=== PATIENT | male | born 1970 | race Caucasian/White ===

== ENCOUNTER 2023-01-18 09:24 | Outpatient (REF) | payer BC, SELFPAY ==
[2023-01-18 11:31] LABS: Hematocrit 47.3 % (42.0-52.0); Hemoglobin 16.4 g/dl (14.0-18.0); Mean Corpuscular HGB Conc 34.7 g/dl (31.0-36.0); Mean Corpuscular Hemoglobin 32.3 pg (27.0-33.0); Mean Corpuscular Volume 93.1 fL (80.0-98.0); Mean Platelet Volume 10.3 fL (9.4-12.4); Platelet Count 248 X10*3/uL (160-400); Red Blood Count 5.08 X10*6/uL (4.60-5.80); Red Cell Distribution Width 12.1 % (11.0-16.0); White Blood Count 12.5 X10*3/uL (4.8-10.8)
[2023-01-18 11:49] LABS: Estimated Average Glucose 148 mg/dL; Hemoglobin A1c % 6.8 % (<6.0)
[2023-01-18 11:55] LABS: Alanine Aminotransferase 33 U/L (0-40); Albumin Level 4.1 g/dL (3.5-5.0); Alkaline Phosphatase 73 U/L (39-117); Anion Gap 12 (12-20); Aspartate Amino Transferase 23 U/L (5-37); Bilirubin Total 0.7 mg/dL (0.0-1.0); Blood Urea Nitrogen 11 mg/dL (9-16); Calcium 9.4 mg/dL (8.4-10.2); Carbon Dioxide 24 mmol/L (22-29); Chloride 107 mmol/L (96-108); Cholesterol 147 mg/dL (<200); Estimated Glomerular Filt Rate > 60; Glucose Fasting 144 mg/dL (60-99); HDL Cholesterol 29 mg/dL (>40); LDL Cholesterol Calculated 91 mg/dL (<100); Sodium 139 mmol/L (135-145); Total Protein 7.2 g/dL (6.5-8.0); Triglycerides 138 mg/dL (<150)
[2023-01-18 12:12] LABS: TSH reflex Free T4 1.29 uIU/mL (0.32-4.0)
[2023-01-22 19:32] LABS: PSA, Ultra Sensitive 1.68 ng/mL
== END 2023-01-18 09:25 | disposition home or self-care (01) ==
LOC: HO.WFDLDS 09:24
PROVIDERS: Visit Provider Nurse Practitioner Family
DX: Z00.00 Encounter for general adult medical examination without abnormal findings (principal); E11.9 Type 2 diabetes mellitus without complications; Z12.5 Encounter for screening for malignant neoplasm of prostate
CPT/HCPCS: 36415; 80053; 80061; 83036; 84153; 84443; 85027

== ENCOUNTER 2023-01-19 10:38 | Outpatient (AMB) | payer BC, SELFPAY ==
--- NOTE | 2023-01-19 10:44 | MHC.PC.OV ---
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 Accompanied by: Self / Same As Patient Allergies No Known Allergies Allergy (Verified 01/19/23 11:28) Medication List - Last Reconciled 01/19/23 by Yoav Mae CNP glipizide 5 mg PO DAILY 30 days metformin 850 mg PO BID 90 days Tobacco use date assessed: 11/09/22 Dental Screening Dental Screen Date: 01/19/23 Did you have a dental visit in the last 12 months?: No Did you have a dental problem in the last 6 months where you did not have access to dental care?: No Was dental information given to patient?: Yes HPI HPI Comments History of Present Illness Details 52-year-old male presents for complete physical exam He has history of type 2 diabetes. He is on glipizide and metformin which he notes he has been taking as prescribed. He had blood work done yesterday, his A1c was 6.8%. Previous A1c was 8.9% 2 months ago. No acute symptoms today. He notes he has been smoking a pack of cigarette daily for the past 25 years. He notes he is not followed by Ophthalmology for diabetic eye exam He notes he has never had a colonoscopy; he requests a referral He notes he has not received the shingrix vaccines. [facility] Medical History Diabetes 1.5, managed as type 2 Migraines Surgical History H/O wrist surgery History of cholecystectomy History of knee surgery Family History Mother Cancer of bladder Sister Mesothelioma Father Lung cancer Maternal Aunt Breast cancer Social History Housing: House Patient Tobacco Use Status: Current everyday Tobacco user Tobacco use type: Cigarette Cigarettes Per Day: 20 Years Smoked: 31 e-Cigarette/Vaping Use: Never Used service: Yes Current occupational status: employed Current occupation: Superintendant Cognitive needs: No Hearing needs: No Vision needs: Yes Questionnaire Thrive Questionnaire Date Thrive assessed: 08/10/22 AUDIT C Alcohol Use Questionnaire (AUDIT-C) 1. How often do you have a drink containing alcohol?: Monthly or less 2. How many drinks containing alcohol do you have on a typical day when you are drinking?: 1 or 2 Total Score: 1 MARIA DEL CARMEN-7 AMB Questionnaire MARIA DEL CARMEN-7 Date MARIA DEL CARMEN - 7 assessed: 08/10/22 Source: Developed by Drs. Ned Hooker, Heather Pepper, Alberto Waldron and colleagues, with an educational casimiro from [employer]. Review of Systems Const Details: Denies chills, Denies fatigue, Denies fever(s), Denies headache(s) and Denies weakness HEENT Denies change in vision, Denies dizziness, Denies headache(s), Denies hearing loss, Denies nasal congestion, Denies sinus pain, Denies sinus pressure and Denies sore throat Card Denies chest pain, Denies lightheadedness, Denies dyspnea and Denies other (palpitations) Resp Denies cough, Denies dyspnea and Denies wheezing GI Denies abdominal pain, Denies melena, Denies hematochezia, Denies change in bowel habits, Denies dyspepsia and Denies nausea Denies hematuria and Denies dysuria Musc Denies abnormal gait, Denies myalgias, Denies arthralgias, Denies numbness and Denies tingling Skin/Breast Denies rash, Denies unusual bruising and Denies wounds Neuro Denies abnormal gait, Denies dizziness, Denies headache(s), Denies memory loss, Denies numbness, Denies Sensory deficit (Neuro), Denies tingling and Denies weakness Psych Denies anxiety, Denies depression and Denies memory loss Endo Denies cold intolerance, Denies fatigue, Denies heat intolerance, Denies polydipsia and Denies polyuria Praful/Lymph Denies easy bleeding and Denies easy bruising Aller/Immun Denies wheezing Physical exam (Primary Care) Vital Signs: Last Vital Signs Temp 97.9 F 01/19/23 10:45 Pulse 93 01/19/23 10:45 Resp 12 01/19/23 10:45 BP 110/64 01/19/23 10:45 Pulse Ox 99 01/19/23 10:45 Oxygen Delivery Method Room Air 01/19/23 10:45 BMI result Body Mass Index 28.9 Tobacco/Smoking Status: Tobacco use Status Tobacco use date assessed 11/09/22 01/19/23 10:54 Patient Tobacco Use Status Current everyday Tobacco 01/19/23 10:54 Tobacco use type Cigarette 01/19/23 10:54 e-Cigarette/Vaping Use Never Used 01/19/23 10:54 Thrive Assessment: Date of Thrive Assessment Date Thrive assessed 08/10/22 01/19/23 10:54 Const Other: General: no acute distress, well developed, alert and awake Nutritional Appearance: well nourished Orientation/consciousness: patient oriented x3 HENMT Head: Yes normocephalic and Yes atraumatic Ears: hearing grossly normal bilaterally and TM's normal bilaterally General nose exam: Normal external nose present and Normal nares present Mouth: Normal oral and palatal mucosa present and moist mucous membranes Teeth and gingiva: dentition normal Throat: Yes oropharynx normal Eyes Pupils: Equal, round and reactive pupils present and Pupil accommodation reflex normal EOM: EOMs intact bilaterally Neck Neck: Yes normal visual inspection, Yes no lymphadenopathy and Yes trachea midline Thyroid: Thyroid normal Carotids: no bruits Lymphatic: no lymphadenopathy noted Chest Chest palpation & inspection: normal inspection of the chest Resp Effort & Inspection: normal respiratory effort Auscultation: clear to auscultation bilaterally Cardio Rate: regular rate Rhythm: regular rhythm Heart sounds: S1 normal heart sound present, S2 normal heart sound present, no gallops, no murmurs and no rubs Bruits: no abdominal aortic bruits and no carotid bruits GI Palpation (GI): No Abdominal aortic bruit present, Soft to palpation, nontender, No hepatosplenomegaly present and No Rebound tenderness present Auscultation: normal bowel sounds General: Yes no CVA tenderness Back/Spine/Pelvis Back: no CVA tenderness Cervical Spine: cervical ROM normal and No Cervical spine tenderness Thoracic/Lumbar Spine: thoraco-lumbar ROM normal, No pain with thoraco-lumbar ROM, No thoracic spinal tenderness and No lumbar spinal tenderness Skin General: warm and dry. Normal skin color. Normal skin turgor Lesions: no lesions Rashes: no rashes Trauma: no lacerations or abrasions Wounds: no wounds Nails: normal Neuro General: patient oriented x3, gait normal and CN's II-XI intact bilaterally Cranial nerves: Yes Equal, round and reactive pupils present Cognition (Neuro): normal cognition Gait exam (Neuro): Normal gait present Motor exam (neuro): 5/5 motor strength present throughout Sensory Exam: No Sensory deficit (Neuro) Deep tendon reflexes (DTR's): Right patellar reflex intensity grade: 2+ and Left patellar reflex intensity grade: 2+ Extrem General: Yes normal to inspection, No edema and No calf tenderness Psych Appearance: grossly normal Affect: normal affect Attitude: cooperative Thought process: Normal thought process present Results Reviewed Results Reviewed: 01/19/23 10:05 UA CC w/rflx Micro + Cult Routine Laboratory Last Values Urine Color Yellow 01/19/23 10:05 Urine Appearance Clear 01/19/23 10:05 Urine pH 6.5 (5.0-9.0) 01/19/23 10:05 Ur Specific [place] >= 1.030 (1.005-1.025) H 01/19/23 10:05 Urine Protein Negative mg/dL (Neg-Trace) 01/19/23 10:05 Urine Glucose (UA) Negative mg/dL (Negative) 01/19/23 10:05 Urine Ketones Negative mg/dL (Negative) 01/19/23 10:05 Urine Blood Negative (Negative) 01/19/23 10:05 Urine Nitrite Negative (Negative) 01/19/23 10:05 Ur Leukocyte Esterase Negative (Negative) 01/19/23 10:05 Assessment and Plan Assessment & Plan (1) Type 2 diabetes mellitus: Code(s): E11.9 - Type 2 diabetes mellitus without complications Plan: A1c today 6.8%, within goal of less than 7.0% Continue current treatment regimen ADA diet and routine exercise encouraged Refered to opthalmology for diabetic retinal exam Follow-up in 3 months or return sooner with concerns or symptoms Verbalized understanding and agreed with treatment plan. 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 (4) Colon cancer screening: Code(s): Z12.11 - Encounter for screening for malignant neoplasm of colon Plan: He notes he has never had a colonoscopy Referred to GI for screening colonoscopy (5) Vaccine counseling: Code(s): Z71.85 - Encounter for immunization safety counseling Plan: He states he has not received the Shingrix vaccines Instructed on importance of vaccinations and encouraged to get shingles vaccine Verbalized understanding and agreed with treatment plan. (6) Smoking greater than 20 pack years: Code(s): F17.210 - Nicotine dependence, cigarettes, uncomplicated Plan: He notes he has been smoking a pack of cigarette daily for the past 25 years. He declines medication regimen to assist with smoking cessation He notes he will quit cold turkey Smoking cessation encouraged CT scan for lung cancer screening ordered Encouraged to inform his PCP if he changes his mind on medication regimen Verbalized understanding and agreed with treatment plan. Orders: Referrals Ophthalmology Referral E11.9 - Type 2 diabetes mellitus without complications Coding Level of Care Code Est Pt Prev Care 40-64y(92221) Diagnoses Type 2 diabetes mellitus E11.9 Normal physical examination, routine Z00.00 Low HDL (under 40) E78.6 Colon cancer screening Z12.11 Vaccine counseling Z71.85 Smoking greater than 20 pack years F17.210
[2023-01-19 10:45] VITALS: BP 110/64; PULSE 93; RESP 12; TEMP 36.6; O2SAT 99; BMI 28.9
[2023-01-19 11:28] LABS: Appearance Urine Clear; Color Urine Yellow; Glucose Urine UA Negative (Negative); Leukocyte Esterase Urine Negative (Negative); Nitrite Urine Negative (Negative); PH 6.5 (5.0-9.0); Specific Gravity - Urine >= 1.030 (1.005-1.025); Urine Blood Negative (Negative); Urine Ketones Negative (Negative); Urine Protein Negative (Neg-Trace)
== END 2023-01-19 11:48 | disposition home or self-care (01) ==
PROVIDERS: PCP Nurse Practitioner Family; Visit Provider Nurse Practitioner Family
DX: E11.9 Type 2 diabetes mellitus without complications (principal); Z00.00 Encounter for general adult medical examination without abnormal findings; E78.6 Lipoprotein deficiency; Z12.11 Encounter for screening for malignant neoplasm of colon; Z71.85 Encounter for immunization safety counseling; F17.210 Nicotine dependence, cigarettes, uncomplicated
CPT/HCPCS: 81003; 99213; 99396

== ENCOUNTER 2023-11-25 11:53 | Outpatient (AMB) | payer BC, SELFPAY ==
--- NOTE | 2023-11-25 11:53 | MHC.PC.OV ---
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 Accompanied by: Self / Same As Patient Allergies No Known Allergies Allergy (Verified 11/25/23 12:06) Tobacco use date assessed: 11/25/23 Dental Screening Dental Screen Date: 11/25/23 Did you have a dental visit in the last 12 months?: No Did you have a dental problem in the last 6 months where you did not have access to dental care?: No Was dental information given to patient?: Yes HPI HPI Comments History of Present Illness Details 53-year-old male presents for diabetes follow-up His last office visit was on 01/19/2023 His last A1c was on 01/18/23, 6.8% He ran out of glipizide and metformin for about 7 months before they were refilled again on 10/27/2023. He notes that he has been taking the medications as prescribed without adverse reactions. He states that his diet is generally healthy but also eats fast foods. He walks around his job for physical exercise His work requires frequent travels to different states. He just flew in to [facility] from [place] this morning and will return today No acute symptoms [facility] Medical History (Updated 11/25/23 @ 12:07 by TALA Carlin) Nail fungus Diabetes 1.5, managed as type 2 Nicotine dependence, cigarettes, uncomplicated Migraines Surgical History (Updated 04/14/23 @ 13:30 by Mayela Abdi PA-C) History of surgery on wrist History of bunionectomy History of cholecystectomy History of knee surgery Family History (Updated 11/25/23 @ 12:08 by TALA Carlin) Mother Cancer of bladder Sister Mesothelioma Father Lung cancer Maternal Aunt Breast cancer Other Substance abuse Social History Housing: House Patient Tobacco Use Status: Current everyday Tobacco user Tobacco use type: Cigarette Cigarette Packs Per Day: 1 Cigarettes Per Day: 20 Years Smoked: 31 e-Cigarette/Vaping Use: Never Used service: Yes Current occupational status: employed Current occupation: Superintendant Cognitive needs: No Hearing needs: No Vision needs: Yes Questionnaire Thrive Questionnaire Date Thrive assessed: 08/10/22 MARIA DEL CARMEN-7 AMB Questionnaire MARIA DEL CARMEN-7 Date MARIA DEL CARMEN - 7 assessed: 08/10/22 Source: Developed by Drs. Ned Hooker, Heather Pepper, Alberto Waldron and colleagues, with an educational casimiro from [employer]. Review of Systems Const Details: Const Denies chills, Denies fatigue, Denies fever(s), Denies headache(s) and Denies weakness ENT Denies dizziness and Denies headache(s) Card Denies chest pain, Denies lightheadedness, Denies dyspnea and Denies other (Palpitations) Resp Denies cough, Denies dyspnea, Denies wheezing and Denies other ( shortness of breath) GI Denies abdominal pain, Denies melena, Denies hematochezia, Denies change in bowel habits, Denies dyspepsia and Denies nausea Denies hematuria and Denies dysuria Musc Denies abnormal gait, Denies myalgias, Denies arthralgias, Denies numbness and Denies tingling Skin/Breast Denies rash, Denies unusual bruising and Denies wounds Neuro Denies abnormal gait, Denies dizziness, Denies headache(s), Denies memory loss, Denies numbness, Denies Sensory deficit (Neuro), Denies tingling and Denies weakness Psych Denies anxiety, Denies depression, Denies memory loss Endo Denies cold intolerance, Denies fatigue, Denies heat intolerance, Denies polydipsia and Denies polyuria Aller/Immun Denies wheezing Physical exam (Primary Care) Vital Signs: Last Vital Signs Temp 97.8 F 11/25/23 11:54 Pulse 90 11/25/23 11:54 Resp 15 11/25/23 11:54 BP 114/72 11/25/23 11:54 Pulse Ox 97 11/25/23 11:54 Oxygen Delivery Method Room Air 11/25/23 11:54 BMI result Body Mass Index 29.9 Tobacco/Smoking Status: Tobacco use Status Tobacco use date assessed 11/09/22 11/25/23 11:53 Patient Tobacco Use Status Current everyday Tobacco 11/25/23 11:53 Tobacco use type Cigarette 11/25/23 11:53 e-Cigarette/Vaping Use Never Used 11/25/23 11:53 Thrive Assessment: Date of Thrive Assessment Date Thrive assessed 08/10/22 11/25/23 11:53 Const Other: General: no acute distress and well developed Nutritional Appearance: well nourished Orientation/consciousness: patient oriented x3 HENAL Head: Yes normocephalic and Yes atraumatic Eyes General: appearance normal, both eyes and all related structures Pupils: Equal, round and reactive pupils present EOM: EOMs intact bilaterally Resp Effort & Inspection: normal respiratory effort Auscultation: clear to auscultation bilaterally Cardio Rate: regular rate Rhythm: regular rhythm Heart sounds: S1 normal heart sound present, S2 normal heart sound present, no gallops, no murmurs and no rubs GI Palpation (GI): No Abdominal aortic bruit present, Soft to palpation, nontender, No hepatosplenomegaly present and No Rebound tenderness present Auscultation: normal bowel sounds General: Yes no CVA tenderness Back/Spine/Pelvis Back: no CVA tenderness Cervical Spine: cervical ROM normal and No Cervical spine tenderness Thoracic/Lumbar Spine: thoraco-lumbar ROM normal, No pain with thoraco-lumbar ROM, No thoracic spinal tenderness and No lumbar spinal tenderness Extrem General: Yes normal to inspection, No edema and No calf tenderness Skin General: warm and dry. Normal skin color. Normal skin turgor Neuro General: patient oriented x3, gait normal and no focal neuro deficit Cranial nerves: Yes Equal, round and reactive pupils present Cognition (Neuro): normal cognition Gait exam (Neuro): Normal gait present Sensory Exam: No Sensory deficit (Neuro) Psych Appearance: grossly normal Affect: normal affect Attitude: cooperative Thought process: Normal thought process present Results AMB Hemoglobin A1c AMB Hemoglobin A1c 9.5 % Last Edit by TALA Carlin on 11/25/23 12:13 Assessment and Plan Assessment & Plan (1) Type 2 diabetes mellitus: Code(s): E11.9 - Type 2 diabetes mellitus without complications Plan: A1c today is 9.5%, above goal of less than 7.0%. Previous A1c was 6.8% Continue current treatment regimen Glipizide and metformin refilled ADA diet and routine exercise encouraged Advised to check fasting and random blood glucose daily, record readings, and bring to next appointment Follow-up in 1 month or sooner with symptoms or concerns Verbalized understanding and agreed with the treatment plan Orders: Orders Complete Blood Count Auto Diff Today Z00.00 - Encounter for general adult medical examination without abnormal findings UA CC w/rflx Micro + Cult Today Z00.00 - Encounter for general adult medical examination without abnormal findings Microalbumin, Random (w Creat) Today Z00.00 - Encounter for general adult medical examination without abnormal findings AMB Hemoglobin A1c Today E11.9 - Type 2 diabetes mellitus without complications Comprehensive [place]. Panel Fast Today Z00.00 - Encounter for general adult medical examination without abnormal findings Lipid Panel Today Z00.00 - Encounter for general adult medical examination without abnormal findings TSH reflex Free T4 Today Z00.00 - Encounter for general adult medical examination without abnormal findings Medications: Refilled metformin 850 mg PO BID 30 days 60 tabs 2RF glipizide 5 mg PO DAILY 30 days 30 tabs 2RF Coding Level of Care Code Est Pt Level 3 (60790) Diagnoses Type 2 diabetes mellitus E11.9
[2023-11-25 11:54] VITALS: BP 114/72; PULSE 90; RESP 15; TEMP 36.6; O2SAT 97; BMI 29.9
== END 2023-11-25 12:31 | disposition home or self-care (01) ==
PROVIDERS: PCP Nurse Practitioner Family; Visit Provider Nurse Practitioner Family
DX: E11.9 Type 2 diabetes mellitus without complications (principal)
CPT/HCPCS: 83036; 99213

== ENCOUNTER 2023-12-26 11:45 | Outpatient (AMB) | payer BC, SELFPAY ==
--- NOTE | 2023-12-26 11:47 | A.OFFPC_ITS ---
Vital Signs 12/26/23 11:53 Height 5 ft 10 in Weight 210 lb 4 oz BMI 30.2 BP 114/68 Blood Pressure Location Lt brachial Position Sitting Respiration 16 Pulse 88 Pulse Source Pulse Oximeter Temp 97.8 F Temp Source Oral Pulse Oximetry (%) 95 Oxygen Delivery Method Room Air Intake Visit Reasons: f/u diabetes Intake Note: patient here to follow up on diabetes. Registered Nurse Fetal Required: No Allergies No Known Allergies Allergy (Verified 12/26/23 11:58) Medication List - Last Reconciled 12/26/23 by Yoav Mae CNP glipizide 5 mg PO DAILY 30 days metformin 850 mg PO BID 30 days Tobacco use date assessed: 12/26/23 Dental Screening Dental Screen Date: 12/26/23 Did you have a dental visit in the last 12 months?: No Did you have a dental problem in the last 6 months where you did not have access to dental care?: No Was dental information given to patient?: Patient has dentist HPI HPI Comments History of Present Illness Details 53-year-old male presents for diabetes f ollow-up He admits to taking glipizide and metformin as prescribed without adverse re actions His last office visit was on 11/25/2023. A1c was 9.5%. He ran out of glipizide and metformin for several months before they were refilled. [place]; sometimes it takes several months for him to return to [place]. At his last visit, he was advised to check his fasting and random blood sugar daily, record readings, and bring to his next appointment. He notes that he lost his glucometer and was not able to check his blood glucose He offers no complaints and denies acute symptoms at this time [facility] Medical History Nail fungus Diabetes 1.5, managed as type 2 Nicotine dependence, cigarettes, uncomplicated Migraines Surgical History History of surgery on wrist History of bunionectomy History of cholecystectomy History of knee surgery Family History (Updated 11/25/23 @ 12:08 by TALA Carlin) Mother Cancer of bladder Sister Mesothelioma Father Lung cancer Maternal Aunt Breast cancer Other Substance abuse Social History (Reviewed 11/25/23 @ 12:08 by SON Carlin Housing: House Patient Tobacco Use Status: Current everyday Tobacco user Tobacco use type: Cigarette Cigarette Packs Per Day: 1 Cigarettes Per Day: 20 Years Smoked: 31 e-Cigarette/Vaping Use: Never Used Second Hand Smoke Exposure: No service: Yes Current occupational status: employed Current occupation: Superintendant Cognitive needs: No Hearing needs: No Vision needs: Yes Questionnaire PHQ-9 Over the last 2 weeks, how often have you been bothered by any of the following problems? 1. Little interest or pleasure in doing things: not at all 2. Feeling down, depressed, or hopeless: not at all 3. Trouble falling or staying asleep, or sleeping too much: not at all 4. Feeling tired or having little energy: several days 5. Poor appetite or overeating: not at all 6. Feeling bad about yourself - or that you are a failure or have let yourself or your family down: not at all 7. Trouble concentrating on things, such as reading the newspaper or watching television: not at all 8. Moving or speaking so slowly that other people could have noticed. Or the opposite - being so fidgety or restless that you have been moving around a lot more than usual: not at all 9. Thoughts that you would be better off or of hurting yourself in some way: not at all Total score: 1 98356 - PHQ-9 Billing: Yes Source: Developed by Drs. Ned Hooker, Alberto Mackey and colleagues, with an educational casimiro from [employer]. Thrive Questionnaire Date Thrive assessed: 08/10/22 MARIA DEL CARMEN-7 AMB Questionnaire MARIA DEL CARMEN-7 Date MARIA DEL CARMEN - 7 assessed: 08/10/22 Source: Developed by Drs. Ned Hooker, Alberto Mackey and colleagues, with an educational casimiro from [employer]. Review of Systems Const Details: Const Denies chills, Denies fatigue, Denies fever(s), Denies headache(s) and Denies weakness ENT Denies dizziness and Denies headache(s) Card Denies chest pain, Denies lightheadedness, Denies dyspnea and Denies other (Palpitations) Resp Denies cough, Denies dyspnea, Denies wheezing and Denies other ( shortness of breath) GI Denies abdominal pain, Denies melena, Denies hematochezia, Denies change in bowel habits, Denies dyspepsia and Denies nausea Denies hematuria and Denies dysuria Musc Denies abnormal gait, Denies myalgias, Denies arthralgias, Denies numbness and Denies tingling Skin/Breast Denies rash, Denies unusual bruising and Denies wounds Neuro Denies abnormal gait, Denies dizziness, Denies headache(s), Denies memory loss, Denies numbness, Denies Sensory deficit (Neuro), Denies tingling and Denies weakness Psych Denies anxiety, Denies depression, Denies memory loss Endo Denies cold intolerance, Denies fatigue, Denies heat intolerance, Denies polydipsia and Denies polyuria Aller/Immun Denies wheezing Physical exam (Primary Care) Vital Signs: Last Vital Signs Temp 97.8 F 12/26/23 11:53 Pulse 88 12/26/23 11:53 Resp 16 12/26/23 11:53 BP 114/68 12/26/23 11:53 Pulse Ox 95 12/26/23 11:53 Oxygen Delivery Method Room Air 12/26/23 11:53 BMI result Body Mass Index 30.2 Tobacco/Smoking Status: Tobacco use Status Tobacco use date assessed 12/26/23 12/26/23 11:56 Patient Tobacco Use Status Current everyday Tobacco 12/26/23 11:56 Tobacco use type Cigarette 12/26/23 11:56 e-Cigarette/Vaping Use Never Used 12/26/23 11:56 PHQ-9: PHQ-9 Score PHQ-9: Total score 1 12/27/23 08:00 Thrive Assessment: Date of Thrive Assessment Date Thrive assessed 08/10/22 12/26/23 11:56 Const Other: General: no acute distress and well developed Nutritional Appearance: well nourished Orientation/consciousness: patient oriented x3 HENMT Head: Yes normocephalic and Yes atraumatic Eyes General: appearance normal, both eyes and all related structures Pupils: Equal, round and reactive pupils present EOM: EOMs intact bilaterally Resp Effort & Inspection: normal respiratory effort Auscultation: clear to auscultation bilaterally Cardio Rate: regular rate Rhythm: regular rhythm Heart sounds: S1 normal heart sound present, S2 normal heart sound present, no gallops, no murmurs and no rubs GI Palpation (GI): No Abdominal aortic bruit present, Soft to palpation, nontender, No hepatosplenomegaly present and No Rebound tenderness present Auscultation: normal bowel sounds General: Yes no CVA tenderness Back/Spine/Pelvis Back: no CVA tenderness Cervical Spine: cervical ROM normal and No Cervical spine tenderness Thoracic/Lumbar Spine: thoraco-lumbar ROM normal, No pain with thoraco-lumbar ROM, No thoracic spinal tenderness and No lumbar spinal tenderness Extrem General: Yes normal to inspection, No edema and No calf tenderness Skin General: warm and dry. Normal skin color. Normal skin turgor Neuro General: patient oriented x3, gait normal and no focal neuro deficit Cranial nerves: Yes Equal, round and reactive pupils present Cognition (Neuro): normal cognition Gait exam (Neuro): Normal gait present Sensory Exam: No Sensory deficit (Neuro) Psych Appearance: grossly normal Affect: normal affect Attitude: cooperative Thought process: Normal thought process present Assessment and Plan Assessment & Plan (1) Type 2 diabetes mellitus: Code(s): E11.9 - Type 2 diabetes mellitus without complications Plan: Did not bring blood glucose log as planned because he lost his glucometer and was unable to check his blood glucose Advised to continue current treatment regimen ADA diet and routine exercise encouraged Glucometer supplies ordered. Advised to check fasting and random glucose daily, record readings, and bring to next appointment Advised to get lab work done before his next visit Follow-up in 2 months for diabetes and an extended physical exam Return sooner with symptoms or concerns Verbalized understanding and agreed with treatment plan (2) Laboratory tests ordered as part of a complete physical exam (CPE): Code(s): Z00.00 - Encounter for general adult medical examination without abnormal findings Plan: Fasting labs ordered in preparation of a complete physical exam. Advised to fast for at least 10 hours before getting labs drawn. May drink water Verbalized understanding and agreed with treatment plan. Orders: Orders AMB Hemoglobin A1c 12/26/23 Z13.9 - Encounter for screening, unspecified Medications: New blood sugar diagnostic (FreeStyle Lite Strips) As directed TID 100 ea 4RF blood-glucose meter (FreeStyle Lite Meter kit) As directed 1 ea 0RF lancets (FreeStyle Lancets) As directed 100 ea 4RF Refilled glipizide 5 mg PO DAILY 30 days 30 tabs 3RF metformin 850 mg PO BID 30 days 60 tabs 3RF Coding Level of Care Code Est Pt Level 4 (04964) Diagnoses Type 2 diabetes mellitus E11.9 Laboratory tests ordered as part of a complete physical exam (CPE) Z00.00
[2023-12-26 11:53] VITALS: BP 114/68; PULSE 88; RESP 16; TEMP 36.6; O2SAT 95; BMI 30.2
== END 2023-12-26 12:10 | disposition home or self-care (01) ==
PROVIDERS: PCP Nurse Practitioner Family; Visit Provider Nurse Practitioner Family
DX: E11.9 Type 2 diabetes mellitus without complications (principal); Z00.00 Encounter for general adult medical examination without abnormal findings
CPT/HCPCS: 99214

== ENCOUNTER 2024-02-27 07:46 | Outpatient (AMB) | payer BC, SELFPAY ==
--- NOTE | 2024-02-27 07:51 | A.OFFPC_ITS ---
Vital Signs 02/27/24 08:04 Height 5 ft 10 in Weight 210 lb 8 oz BMI 30.2 BP 124/76 Blood Pressure Location Rt brachial Position Sitting Respiration 16 Pulse 85 Pulse Source Pulse Oximeter Temp 97 F Temp Source Oral Intake Visit Reasons: 2 month DM and CPE Intake Note: patient here for 2 month follow up on DM and CPE Rn Occupational Required: No Allergies No Known Allergies Allergy (Verified 02/27/24 08:14) Medication List - Last Reconciled 02/27/24 by Yoav Mae CNP blood sugar diagnostic (FreeStyle Lite Strips) As directed TID blood-glucose meter (FreeStyle Lite Meter kit) As directed glipizide 5 mg PO DAILY 30 days lancets (FreeStyle Lancets) As directed metformin 850 mg PO BID 30 days Tobacco use date assessed: 02/27/24 Dental Screening Dental Screen Date: 02/27/24 Did you have a dental visit in the last 12 months?: No Did you have a dental problem in the last 6 months where you did not have access to dental care?: No Was dental information given to patient?: Patient has dentist HPI HPI Comments History of Present Illness Details 54-year-old male presents for an extende d physical exam He has history of type 2 diabetes. He notes that he has trouble reading up close He admits to taking his medications as prescribed without adverse reactions He generally eats and sleeps well. He walks routinely He notes productive cough with clear phlegm for the past 2 day. No dyspnea or chest pain/discomfort. No constitutional symptoms. He decreased his amount of cigarettes to 4 daily He smokes a pack of cigarettes daily and has been smoking for over 30 years. He does not drink alcohol. Last eye exam was several years ago. He has an appointment with [facility] in 06/2024 He has never had a colonoscopy He has not been vaccinated for shingles He has not been vaccinated for flu this season Last tetanus vaccines withing 5-10 years He notes that his health plan declined LDCT for smoking. His father had history of lung cancer [facility] Medical History Nail fungus Diabetes 1.5, managed as type 2 Nicotine dependence, cigarettes, uncomplicated Migraines Surgical History History of surgery on wrist History of bunionectomy History of cholecystectomy History of knee surgery Family History (Updated 11/25/23 @ 12:08 by TALA Carlin) Mother Cancer of bladder Sister Mesothelioma Father Lung cancer Maternal Aunt Breast cancer Other Substance abuse Social History Housing: House Patient Tobacco Use Status: Current everyday Tobacco user Tobacco use type: Cigarette Cigarette Packs Per Day: 1 Cigarettes Per Day: 20 Years Smoked: 31 e-Cigarette/Vaping Use: Never Used Second Hand Smoke Exposure: No service: Yes Current occupational status: employed Current occupation: Superintendant Cognitive needs: No Hearing needs: No Vision needs: Yes Questionnaire PHQ-9 Over the last 2 weeks, how often have you been bothered by any of the following problems? 1. Little interest or pleasure in doing things: not at all 2. Feeling down, depressed, or hopeless: not at all 3. Trouble falling or staying asleep, or sleeping too much: not at all 4. Feeling tired or having little energy: not at all 5. Poor appetite or overeating: not at all 6. Feeling bad about yourself - or that you are a failure or have let yourself or your family down: not at all 7. Trouble concentrating on things, such as reading the newspaper or watching television: not at all 8. Moving or speaking so slowly that other people could have noticed. Or the opposite - being so fidgety or restless that you have been moving around a lot more than usual: not at all 9. Thoughts that you would be better off or of hurting yourself in some way: not at all Total score: 0 Depression Screening Interpretation: Negative Depression Screening Done: Yes Source: Developed by Drs. Ned Hooker, Heather Pepper, Alberto Waldron and colleagues, with an educational casimiro from [employer]. Thrive Questionnaire Date Thrive assessed: 02/27/24 I am a: Patient What is your living situation today?: I have a steady place to live Within the past 12 months, did the food you bought not last and you didn't have the money to get more?: Never true Within the past 12 months, did you worry whether your food would run out before you got money to buy more?: Never true Do you have trouble paying for medicines?: No Do you have trouble getting transportation to medical appointments?: No Do you have trouble paying your heating and electricity bill?: No Do you have trouble taking care of your child, family member or friend?: No Do you have trouble with day-to-day activities such as bathing, preparing meals, shopping, managing finances, etc.?: No Are you currently unemployed and looking for a job?: No Are you interested in more education?: No Please select the resources that you would like help with: None Currently or been in a relationship where the following occur: No concerns reported THRIVE Score: 0 AUDIT C Alcohol Use Questionnaire (AUDIT-C) 1. How often do you have a drink containing alcohol?: Never Total Score: 0 Score Reviewed/Action Taken: Yes MARIA DEL CARMEN-7 AMB Questionnaire MARIA DEL CARMEN-7 Date MARIA DEL CARMEN - 7 assessed: 02/27/24 Feeling nervous, anxious, or on edge: 0 = Not at all Not being able to stop or control worryin = Not at all Worrying too much about different things: 0 = Not at all Trouble relaxin = Not at all Being so restless that it is hard to sit still: 0 = Not at all Becoming easily annoyed or irritable: 0 = Not at all Feeling afraid as if something awful might happen: 0 = Not at all Total MARIA DEL CARMEN-7 score (0-4 normal; 5-9 mild; 10-14 moderate; 15-21 severe): 0 Source: Developed by Drs. Ned Hooker, Heather Pepper, Alberto Waldron and colleagues, with an educational casimiro from [employer]. MARIA DEL CARMEN-7 Assessment Billing MRAIA DEL CARMEN-7 Assessment Tool: MARIA DEL CARMEN-7 Assessment [id number] Review of Systems Const Details: Denies chills, Denies fatigue, Denies fever(s), Denies headache(s) and Denies weakness HEENT Denies change in vision, Denies dizziness, Denies headache(s), Denies hearing loss, Denies nasal congestion, Denies sinus pain, Denies sinus pressure and Denies sore throat Card Denies chest pain, Denies lightheadedness, Denies dyspnea and Denies other (palpitations) Resp Reports cough, Denies dyspnea and Denies wheezing GI Denies abdominal pain, Denies melena, Denies hematochezia, Denies change in bowel habits, Denies dyspepsia and Denies nausea Denies hematuria and Denies dysuria Musc Denies abnormal gait, Denies myalgias, Denies arthralgias, Denies numbness and Denies tingling Skin/Breast Denies rash, Denies unusual bruising and Denies wounds Neuro Denies abnormal gait, Denies dizziness, Denies headache(s), Denies memory loss, Denies numbness, Denies Sensory deficit (Neuro), Denies tingling and Denies weakness Psych Denies anxiety, Denies depression and Denies memory loss Endo Denies cold intolerance, Denies fatigue, Denies heat intolerance, Denies polyd ipsia and Denies polyuria Praful/Lymph Denies easy bleeding and Denies easy bruising Aller/Immun Denies wheezing Physical exam (Primary Care) Vital Signs: Last Vital Signs Temp 97 F 02/27/24 08:04 Pulse 85 02/27/24 08:04 Resp 16 02/27/24 08:04 BP 124/76 02/27/24 08:04 BMI result Body Mass Index 30.2 Tobacco/Smoking Status: Tobacco use Status Tobacco use date assessed 02/27/24 02/27/24 08:02 Patient Tobacco Use Status Current everyday Tobacco 02/27/24 07:52 Tobacco use type Cigarette 02/27/24 07:52 e-Cigarette/Vaping Use Never Used 02/27/24 07:52 PHQ-9: PHQ-9 Score PHQ-9: Total score 0 02/27/24 11:31 Depression Screening Interpretation: Negative Thrive Assessment: Date of Thrive Assessment Date Thrive assessed 02/27/24 02/27/24 08:06 Currently or been in a relationship where the following occur: No concerns reported Const Other: General: no acute distress, well developed, alert and awake Nutritional Appearance: well nourished Orientation/consciousness: patient oriented x3 HENMT Head: Yes normocephalic and Yes atraumatic Ears: hearing grossly normal bilaterally and TM's normal bilaterally General nose exam: Normal external nose present and Normal nares present Mouth: Normal oral and palatal mucosa present and moist mucous membranes Teeth and gingiva: dentition normal Throat: Yes oropharynx normal Eyes Pupils: Equal, round and reactive pupils present and Pupil accommodation reflex normal EOM: EOMs intact bilaterally Neck Neck: Yes normal visual inspection, Yes no lymphadenopathy and Yes trachea midline Thyroid: Thyroid normal Carotids: no bruits Lymphatic: no lymphadenopathy noted Chest Chest palpation & inspection: normal inspection of the chest Resp Effort & Inspection: normal respiratory effort Auscultation:Lung sounds wheezing bilaterally, worse to right upper and lower lobes Cardio Rate: regular rate Rhythm: regular rhythm Heart sounds: S1 normal heart sound present, S2 normal heart sound present, no gallops, no murmurs and no rubs Bruits: no abdominal aortic bruits and no carotid bruits GI Palpation (GI): No Abdominal aortic bruit present, Soft to palpation, nontender, No hepatosplenomegaly present and No Rebound tenderness present Auscultation: normal bowel sounds General: Yes no CVA tenderness Back/Spine/Pelvis Back: no CVA tenderness Cervical Spine: cervical ROM normal and No Cervical spine tenderness Thoracic/Lumbar Spine: thoraco-lumbar ROM normal, No pain with thoraco-lumbar ROM, No thoracic spinal tenderness and No lumbar spinal tenderness Skin General: warm and dry. Normal skin color. Normal skin turgor Lesions: no lesions Rashes: no rashes Trauma: no lacerations or abrasions Wounds: no wounds Nails: normal Neuro General: patient oriented x3, gait normal and CN's II-XI intact bilaterally Cranial nerves: Yes Equal, round and reactive pupils present Cognition (Neuro): normal cognition Gait exam (Neuro): Normal gait present Motor exam (neuro): 5/5 motor strength present throughout Sensory Exam: No Sensory deficit (Neuro) Deep tendon reflexes (DTR's): Right patellar reflex intensity grade: 2+ and Left patellar reflex intensity grade: 2+ Extrem General: Yes normal to inspection, No edema and No calf tenderness Psych Appearance: grossly normal Affect: normal affect Attitude: cooperative Thought process: Normal thought process present Results AMB Hemoglobin A1c AMB Hemoglobin A1c 7.8 % Last Edit by Minerva Saravia MA on 02/27/24 12:20 Results Reviewed Results Reviewed: Laboratory Last Values Hgb A1c (Clinic) 7.8 % (4.0-6.0) H 02/27/24 08:16 Coding Level of Care Code Est Pt Level 3 (73298) Est Pt Prev Care 40-64y(47033) Diagnoses Normal physical examination, routine Z00.00 Type 2 diabetes mellitus E11.9 Cough R05.9 Colon cancer screening Z12.11 Vaccine counseling Z71.85 Screening for lung cancer Z12.2 Additional Codes MARIA DEL CARMEN-7 Assessment Billing - MARIA DEL CARMEN-7 Assessment Tool: MARIA DEL CARMEN-7 Assessment [id number] ([id number])
[2024-02-27 08:04] VITALS: BP 124/76; PULSE 85; RESP 16; TEMP 36.1; BMI 30.2
== END 2024-02-27 08:34 | disposition home or self-care (01) ==
PROVIDERS: PCP Nurse Practitioner Family; Visit Provider Nurse Practitioner Family
DX: Z00.00 Encounter for general adult medical examination without abnormal findings (principal); E11.9 Type 2 diabetes mellitus without complications; R05.9 Cough, unspecified; Z12.11 Encounter for screening for malignant neoplasm of colon; Z71.85 Encounter for immunization safety counseling; Z12.2 Encounter for screening for malignant neoplasm of respiratory organs

== ENCOUNTER → 2024-02-27 07:46 | Outpatient (BNVA) | payer BC, SELFPAY | PROVIDERS: PCP Nurse Practitioner Family; Visit Provider Nurse Practitioner Family | DX: Z00.01 Encounter for general adult medical examination with abnormal findings (principal); E11.9 Type 2 diabetes mellitus without complications; R05.9 Cough, unspecified; Z71.85 Encounter for immunization safety counseling | CPT/HCPCS: 83036; 96127 ==

== ENCOUNTER 2024-02-27 08:40 | Outpatient (REF) | payer BC, SELFPAY ==
[2024-02-27 11:30] LABS: Appearance Urine Turbid; Color Urine Dark Yellow; Glucose Urine UA 500 mg/dL (Negative); Leukocyte Esterase Urine Trace (Negative); Nitrite Urine Negative (Negative); PH 5.5 (5.0-9.0); Specific Gravity - Urine >= 1.030 (1.005-1.025); UMIC TRIGGER UACC YES; Urine Blood Small (1+) (Negative); Urine Ketones Trace mg/dL (Negative); Urine Protein 100 (2+) mg/dL (Neg-Trace)
[2024-02-27 11:48] LABS: MANUAL DIFF FLAG NO
[2024-02-27 11:59] LABS: Basophils Absolute Auto 0.1 X10*3/uL (0.0-0.2); Basophils Percent Auto 0.7 % (0-2); Eosinophils Absolute Auto 0.1 X10*3/uL (0.0-0.4); Eosinophils Percent Auto 1.5 % (0-4); Hematocrit 48.8 % (42.0-52.0); Hemoglobin 16.8 g/dl (14.0-18.0); Imm Gran Abs Auto 0.05 X10*3/uL (0.00-0.03); Imm Gran Pct Auto 0.5 % (0.0-0.4); Lymphocytes Absolute Auto 2.1 X10*3/uL (1.2-4.9); Lymphocytes Percent Auto 22.7 % (20-40); Mean Corpuscular HGB Conc 34.4 g/dl (31.0-36.0); Mean Corpuscular Hemoglobin 32.2 pg (27.0-33.0); Mean Corpuscular Volume 93.7 fL (80.0-98.0); Mean Platelet Volume 10.5 fL (9.4-12.4); Monocytes Percent Auto 10.5 % (2-11); Neutrophils Absolute Auto 5.9 x10*3/uL (2.0-8.3); Neutrophils Percent Auto 64.1 % (45-73); Platelet Count 201 X10*3/uL (160-400); Red Blood Count 5.21 X10*6/uL (4.60-5.80); Red Cell Distribution Width 12.4 % (11.0-16.0); White Blood Count 9.2 X10*3/uL (4.8-10.8)
[2024-02-27 12:13] LABS: Bacteria Urine None Seen (None Seen); Calcium Oxalate Crystals Urine Present; Squamous Epithelial Cell Urine 0-2 /HPF (0-2); WBC Urine 0-5 /HPF (0-5)
[2024-02-27 12:31] LABS: Creatinine Urine 319.09 mg/dL; Microalbum/Creatinine Ratio Ur 92.1 ug/mg cr (<30)
[2024-02-27 12:48] LABS: Alanine Aminotransferase 48 U/L (0-40); Albumin Level 4.1 g/dL (3.5-5.0); Alkaline Phosphatase 96 U/L (39-117); Anion Gap 11 (12-20); Aspartate Amino Transferase 30 U/L (5-37); Bilirubin Total 0.4 mg/dL (0.0-1.0); Blood Urea Nitrogen 9 mg/dL (9-16); Calcium 9.3 mg/dL (8.4-10.2); Carbon Dioxide 25 mmol/L (22-29); Chloride 109 mmol/L (96-108); Cholesterol 150 mg/dL (<200); Estimated Glomerular Filt Rate > 60; Glucose Fasting 209 mg/dL (60-99); HDL Cholesterol 29 mg/dL (>40); LDL Cholesterol Calculated 102 mg/dL (<100); Potassium 3.7 mmol/L (3.3-5.1); Sodium 141 mmol/L (135-145); TSH reflex Free T4 1.55 uIU/mL (0.32-4.0); Total Protein 7.1 g/dL (6.5-8.0); Triglycerides 99 mg/dL (<150)
[2024-03-05 19:03] LABS: PSA, Ultra Sensitive 2.34 ng/mL
== END 2024-02-27 08:41 | disposition home or self-care (01) ==
LOC: HO.WFDLDS 08:40
PROVIDERS: Visit Provider Nurse Practitioner Family
DX: Z00.00 Encounter for general adult medical examination without abnormal findings (principal); Z12.5 Encounter for screening for malignant neoplasm of prostate
CPT/HCPCS: 36415; 80053; 80061; 81001; 82043; 82570; 84153; 84443; 85025

== ENCOUNTER 2024-06-07 08:19 | Outpatient (AMB) | payer BC, SELFPAY ==
--- NOTE | 2024-06-07 08:09 | A.OFFPC_ITS ---
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 Allergies No Known Allergies Allergy (Verified 06/07/24 08:49) Medication List - Last Reconciled 06/07/24 by Yoav Mae CNP blood sugar diagnostic (FreeStyle Lite Strips) As directed TID blood-glucose meter (FreeStyle Lite Meter kit) As directed glipizide 5 mg PO DAILY 30 days lancets (FreeStyle Lancets) As directed metformin 1,000 mg PO BIDWMEAL 30 days Tobacco use date assessed: 06/07/24 Dental Screening Dental Screen Date: 06/07/24 Did you have a dental visit in the last 12 months?: No Did you have a dental problem in the last 6 months where you did not have access to dental care?: No Was dental information given to patient?: No HPI HPI Comments History of Present Illness Details 54-year-old male presents for telehealth visit for diabetes. He admits to taking his medications as prescribed without adverse reactions. He has been making healthy dietary choices and exercising routinely. He offers no complaints and denies acute symptoms at this time. He did not get lipid panel blood work done as planned for this visit. [facility], LATER [facility] Medical History Nail fungus Diabetes 1.5, managed as type 2 Nicotine dependence, cigarettes, uncomplicated Migraines Surgical History History of surgery on wrist History of bunionectomy History of cholecystectomy History of knee surgery Family History (Updated 11/25/23 @ 12:08 by TALA Carlin) Mother Cancer of bladder Sister Mesothelioma Father Lung cancer Maternal Aunt Breast cancer Other Substance abuse Social History Housing: House Patient Tobacco Use Status: Current everyday Tobacco user Tobacco use type: Cigarette Cigarette Packs Per Day: 1 Cigarettes Per Day: 20 Years Smoked: 31 e-Cigarette/Vaping Use: Never Used Second Hand Smoke Exposure: No service: Yes Current occupational status: employed Current occupation: Superintendant Cognitive needs: No Hearing needs: No Vision needs: Yes Questionnaire Thrive Questionnaire Date Thrive assessed: 02/27/24 MARIA DEL CARMEN-7 AMB Questionnaire MARIA DEL CARMEN-7 Date MARIA DEL CARMEN - 7 assessed: 02/27/24 Source: Developed by Drs. Ned Hooker, Heather Pepper, Alberto Waldron and colleagues, with an educational casimiro from [employer]. Review of Systems Const Details: Denies chills, Denies fatigue, Denies fever(s), Denies headache(s) and Denies weakness Cardiac Denies chest pain, Denies claudication, Denies leg edema, Denies lightheadedness, Denies palpitations, Denies dyspnea, Denies dyspnea on exertion, Denies orthopnea and Denies other (Loss of consciousness) Resp Denies cough, Denies excessive phlegm production, Denies dyspnea, Denies dyspnea on exertion, Denies snoring and Denies wheezing Physical exam (Primary Care) Vital Signs: Last Vital Signs Temp 98.1 F 06/07/24 08:29 Pulse 77 06/07/24 08:29 Resp 16 06/07/24 08:29 BP 121/68 06/07/24 08:29 Pulse Ox 99 06/07/24 08:29 Oxygen Delivery Method Room Air 06/07/24 08:29 BMI result Body Mass Index 30.2 Tobacco/Smoking Status: Tobacco use Status Tobacco use date assessed 06/07/24 06/07/24 08:33 Patient Tobacco Use Status Current everyday Tobacco 06/07/24 08:09 Tobacco use type Cigarette 06/07/24 08:09 e-Cigarette/Vaping Use Never Used 06/07/24 08:09 Thrive Assessment: Date of Thrive Assessment Date Thrive assessed 02/27/24 06/07/24 08:09 Const Other: Telehealth visit. No physical exam. Results AMB Hemoglobin A1c AMB Hemoglobin A1c 7.5 % Last Edit by Minerva Saravia on 06/07/24 08:36 Results Reviewed Results Reviewed: Laboratory Last Values Hgb A1c (Clinic) 7.5 % (4.0-6.0) H 06/07/24 08:09 Coding Level of Care Code Tele Est Pt Level 3 (10673) Diagnoses Type 2 diabetes mellitus E11.9 Time Spent (min) 15 Assessment & Plan Assessment & Plan (1) Type 2 diabetes mellitus: Code(s): E11.9 - Type 2 diabetes mellitus without complications Category: Medical Plan: A1c today is 7.5%, above goal of less than 7.0%. Previous A1c was 7.8%. Will increase glipizide to 10 mg daily; advised to take as prescribed. Continue to take metformin 1000 mg twice daily. ADA diet and routine exercise encouraged. Advised to fast for 10-12 hours, may drink water, and perform lipid panel blood work before next visit. Follow-up in 3 months or sooner with symptoms or concerns. Verbalized understanding and agreed with the plan. Orders: Orders AMB Hemoglobin A1c Today Z13.9 - Encounter for screening, unspecified Medications: New glipizide 10 mg PO DAILY 30 days 30 tabs 3RF Discontinued glipizide Discontinued Reason: Doctor's Order 5 mg PO DAILY 30 days 30 tabs 3RF
[2024-06-07 08:29] VITALS: BP 121/68; PULSE 77; RESP 16; TEMP 36.7; O2SAT 99; BMI 30.2
== END 2024-06-07 09:01 | disposition home or self-care (01) ==
PROVIDERS: PCP Nurse Practitioner Family; Visit Provider Nurse Practitioner Family
DX: E11.9 Type 2 diabetes mellitus without complications (principal); Z13.9 Encounter for screening, unspecified

== ENCOUNTER → 2024-06-07 08:19 | Outpatient (BNVA) | payer BC, SELFPAY | PROVIDERS: PCP Nurse Practitioner Family; Visit Provider Nurse Practitioner Family | DX: E11.9 Type 2 diabetes mellitus without complications (principal); Z79.84 Long term (current) use of oral hypoglycemic drugs | CPT/HCPCS: 83036 ==

== ENCOUNTER 2024-10-12 09:40 | Outpatient (REF) | payer BC, SELFPAY ==
[2024-10-12 11:07] LABS: Appearance Urine Clear; Color Urine Dark Yellow; Glucose Urine UA 100 mg/dL (Negative); Leukocyte Esterase Urine Negative (Negative); Nitrite Urine Negative (Negative); PH 5.5 (5.0-9.0); Specific Gravity - Urine >= 1.030 (1.005-1.025); UMIC TRIGGER UACC YES; Urine Blood Negative (Negative); Urine Ketones Trace mg/dL (Negative); Urine Protein 30 (1+) mg/dL (Neg-Trace)
[2024-10-12 11:22] LABS: Bacteria Urine None Seen (None Seen); Hyaline Casts Urine 0-2 /LPF (0-2); RBC Urine 0-2 /HPF (0-2); Squamous Epithelial Cell Urine 0-2 /HPF (0-2); WBC Urine 0-5 /HPF (0-5)
[2024-10-12 12:20] LABS: Cholesterol 157 mg/dL (<200); HDL Cholesterol 32 mg/dL (>40); LDL Cholesterol Calculated 92 mg/dL (<100); Triglycerides 168 mg/dL (<150)
== END 2024-10-12 09:41 | disposition home or self-care (01) ==
LOC: HO.WFDLDS 09:40
PROVIDERS: Visit Provider Nurse Practitioner Family
DX: Z00.00 Encounter for general adult medical examination without abnormal findings (principal); E11.9 Type 2 diabetes mellitus without complications
CPT/HCPCS: 36415; 80061; 81001

== ENCOUNTER 2024-10-19 09:47 | Outpatient (AMB) | payer BC, SELFPAY ==
--- NOTE | 2024-10-19 09:50 | A.OFFPC_ITS ---
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 He admits to taking his medications as prescribed without adverse reactions. He has been making healthy dietary choices and exercising routinely. However, he consumes two 20 ounce soda and consuming Gatorade daily. He denies hypoglycemia episodes. He offers no complaints and denies acute symptoms at this time. His last diabetic retinal exam with [facility] was in 07/04/2024: Retinopathy OU. Follow up is in 08/21/2025. He followed up with [facility] on 08/02/2024 and has a follow up visit in 11/2024. [facility] Medical History Nail fungus Diabetes 1.5, managed as type 2 Nicotine dependence, cigarettes, uncomplicated Migraines Surgical History History of surgery on wrist History of bunionectomy History of cholecystectomy History of knee surgery Family History (Updated 11/25/23 @ 12:08 by TALA Carlin) Mother Cancer of bladder Sister Mesothelioma Father Lung cancer Maternal Aunt Breast cancer Other Substance abuse Social History Housing: House Patient Tobacco Use Status: Current everyday Tobacco user Tobacco use type: Cigarette Cigarette Packs Per Day: 1 Cigarettes Per Day: 20 Years Smoked: 31 e-Cigarette/Vaping Use: Never Used Second Hand Smoke Exposure: No service: Yes Current occupational status: employed Current occupation: Superintendant Cognitive needs: No Hearing needs: No Vision needs: Yes Questionnaire PHQ-9 Over the last 2 weeks, how often have you been bothered by any of the following problems? 2. Feeling down, depressed, or hopeless: not at all 3. Trouble falling or staying asleep, or sleeping too much: not at all Source: Developed by Drs. Ned Hooker, Alberto Mackey and colleagues, with an educational casimiro from [employer]. Thrive Questionnaire Date Thrive assessed: 06/07/24 I am a: Patient What is your living situation today?: I have a steady place to live Within the past 12 months, did the food you bought not last and you didn't have the money to get more?: Never true Within the past 12 months, did you worry whether your food would run out before you got money to buy more?: Never true Do you have trouble paying for medicines?: No Do you have trouble getting transportation to medical appointments?: No Do you have trouble paying your heating and electricity bill?: No Do you have trouble taking care of your child, family member or friend?: No Do you have trouble with day-to-day activities such as bathing, preparing meals, shopping, managing finances, etc.?: No Are you currently unemployed and looking for a job?: No Are you interested in more education?: No Please select the resources that you would like help with: None Currently or been in a relationship where the following occur: No concerns reported THRIVE Score: 0 MARIA DEL CARMEN-7 AMB Questionnaire MARIA DEL CARMEN-7 Date MARIA DEL CARMEN - 7 assessed: 02/27/24 Source: Developed by Drs. Ned Hooker, Heather Pepper, Alberto Waldron and colleagues, with an educational casimiro from [employer]. Review of Systems Const Details: Const Denies chills, Denies fatigue, Denies fever(s), Denies headache(s) and Denies weakness ENT Denies dizziness and Denies headache(s) Card Denies chest pain, Denies lightheadedness, Denies dyspnea and Denies other (Palpitations) Resp Denies cough, Denies dyspnea, Denies wheezing and Denies other ( shortness of breath) GI Denies abdominal pain, Denies melena, Denies hematochezia, Denies change in bowel habits, Denies dyspepsia and Denies nausea Denies hematuria and Denies dysuria Musc Denies abnormal gait, Denies myalgias, Denies arthralgias, Denies numbness and Denies tingling Skin/Breast Denies rash, Denies unusual bruising and Denies wounds Neuro Denies abnormal gait, Denies dizziness, Denies headache(s), Denies memory loss, Denies numbness, Denies Sensory deficit (Neuro), Denies tingling and Denies weakness Psych Denies anxiety, Denies depression, Denies memory loss Endo Denies cold intolerance, Denies fatigue, Denies heat intolerance, Denies polydipsia and Denies polyuria Aller/Immun Denies wheezing Physical exam (Primary Care) Vital Signs: Last Vital Signs Temp 98.3 F 10/19/24 09:57 Pulse 93 10/19/24 09:57 Resp 16 10/19/24 09:57 BP 133/71 10/19/24 09:57 Pulse Ox 95 10/19/24 09:57 Oxygen Delivery Method Room Air 10/19/24 09:57 BMI result Body Mass Index 31.3 Tobacco/Smoking Status: Tobacco use Status Tobacco use date assessed 10/19/24 10/19/24 10:01 Patient Tobacco Use Status Current everyday Tobacco 10/19/24 09:52 Tobacco use type Cigarette 10/19/24 09:52 e-Cigarette/Vaping Use Never Used 10/19/24 09:52 Thrive Assessment: Date of Thrive Assessment Date Thrive assessed 06/07/24 10/19/24 09:52 Currently or been in a relationship where the following occur: No concerns reported Const Other: General: no acute distress and well developed Nutritional Appearance: well nourished Orientation/consciousness: patient oriented x3 HENMT Head: Yes normocephalic and Yes atraumatic Eyes General: appearance normal, both eyes and all related structures Pupils: Equal, round and reactive pupils present EOM: EOMs intact bilaterally Resp Effort & Inspection: normal respiratory effort Auscultation: clear to auscultation bilaterally Cardio Rate: regular rate Rhythm: regular rhythm Heart sounds: S1 normal heart sound present, S2 normal heart sound present, no gallops, no murmurs and no rubs GI Palpation (GI): No Abdominal aortic bruit present, Soft to palpation, nontender, No hepatosplenomegaly present and No Rebound tenderness present Auscultation: normal bowel sounds General: Yes no CVA tenderness Back/Spine/Pelvis Back: no CVA tenderness Cervical Spine: cervical ROM normal and No Cervical spine tenderness Thoracic/Lumbar Spine: thoraco-lumbar ROM normal, No pain with thoraco-lumbar ROM, No thoracic spinal tenderness and No lumbar spinal tenderness Extrem General: Yes normal to inspection, No edema and No calf tenderness Skin General: warm and dry. Normal skin color. Normal skin turgor Neuro General: patient oriented x3, gait normal and no focal neuro deficit Cranial nerves: Yes Equal, round and reactive pupils present Cognition (Neuro): normal cognition Gait exam (Neuro): Normal gait present Sensory Exam: No Sensory deficit (Neuro) Psych Appearance: grossly normal Affect: normal affect Attitude: cooperative Thought process: Normal thought process present Results AMB Hemoglobin A1c AMB Hemoglobin A1c 8.7 % Last Edit by Minerva Saravia MA on 10/19/24 10:38 Results Reviewed Results Reviewed: Laboratory Last Values Hgb A1c (Clinic) 8.7 % (4.0-6.0) H 10/19/24 10:37 Coding Level of Care Code Est Pt Level 4 (21298) Diagnoses Type 2 diabetes mellitus with complications E11.8 Assessment & Plan Assessment & Plan (1) Type 2 diabetes mellitus with complications: Code(s): E11.8 - Type 2 diabetes mellitus with unspecified complications Category: Medical Plan: A1c today is 8.7%, above goal of less than 7.0%. Previous A1c was 7.5%. His last diabetic retinal exam with [facility] was in 07/04/2024: Retinopathy OU. Follow up is in 08/21/2025. He followed up with [facility] on 08/02/2024 and has a follow up visit in 11/2024. Will increase glipizide to 10 mg twice daily; advised to take as prescribed. Continue to take metformin 1000 mg twice daily. ADA diet and routine exercise encouraged. Encouraged to follow-up with Ophthalmology and retina specialists as planned. Follow-up in 3 months or sooner with symptoms or concerns. Verbalized understanding and agreed with treatment plan. Orders: Orders AMB Hemoglobin A1c 05/23/25 Z13.9 - Encounter for screening, unspecified Medications: New glipizide 10 mg PO BID 30 days 60 tabs 3RF Discontinued glipizide Discontinued Reason: Doctor's Order 10 mg PO DAILY 30 days 30 tabs 3RF
[2024-10-19 09:57] VITALS: BP 133/71; PULSE 93; RESP 16; TEMP 36.8; O2SAT 95; BMI 31.3
== END 2024-10-19 10:16 | disposition home or self-care (01) ==
LOC: HO.HMCFM 09:48
PROVIDERS: PCP Nurse Practitioner Family; Visit Provider Nurse Practitioner Family
DX: Z13.9 Encounter for screening, unspecified (principal)

== ENCOUNTER → 2024-10-19 09:47 | Outpatient (BNVA) | payer BC, SELFPAY | PROVIDERS: PCP Nurse Practitioner Family; Visit Provider Nurse Practitioner Family | DX: E11.8 Type 2 diabetes mellitus with unspecified complications (principal) | CPT/HCPCS: 83036 ==